=== PATIENT | male | born 1960 | race Caucasian/White ===

== ENCOUNTER → 2016-12-29 | Outpatient (CLI) | payer OTHER ==
[~2016-12-29] VITALS: Ht 177.8 cm; Wt 93.9 kg
[~2016-12-29] MED LIST: ADVAIR 250/501 DISK IH; AMLODIPINE-BEN1 EACH PO; ATHLETE'S FOOT130 GM TP; BISACODYL5 MG PO; CALMOSEPTINE O3.5 GM TP; CLARITIN,ALAVAR10 MG PO; CLOTRIMAZOLE-BE15 GM TP; COLACE100 MG PO; CONSTULOSE10 GM/15 M PO; DEBROX15 ML BOTH EARS; DITROPAN XL15 MG PO; EAR WAX DROPS15 ML BOTH EARS; ENULOSE10 GM/15 M PO; FLOMAX0.4 MG PO; FLONASE SENSIM9.9 ML BOTH NARES; FLUTICASONE PRO16 GM BOTH NARES; GAS RELIEF125 M1 PO; GAS RELIEF125 MG PO; GOLD BOND MEDI283 G1 TP; HEAD AND SHOULDERS TP; IMODIUM A-D2 M2 PO; IMODIUM MS REL1 EACH PO; JOCK ITCH RELIE15 GM TP; KENALOG,ARISTOC80 GM TP; LAMICTAL200 MG PO; LAMOTRIGINE100 MG PO; LISTERINE PO; LOTREL 10/21 CAPSULE PO; NEOSPORIN ANT70.8 GM TP; NEXIUM40 MG PO; NICODERM CQ1 EACH TD; NORCO 5/3251 TABLET PO; OXYBUTYNIN CHLO15 MG PO; PATANOL OP100 DROP/5 BOTH EYES; POLYETHYLENE G255 GM PO; POLYETHYLENE GL17 GM PO; POTASSIUM CHLO10 ME3 PO; PRAVACHOL20 MG PO; PRAVASTATIN SOD20 MG PO; RISAMINE OINTM113 GM TP; ROBITUSSIN DM118 ML PO; SERTRALINE HCL100 MG PO; SINGULAIR10 MG PO; TAMSULOSIN HCL0.4 MG PO; TIZANIDINE HCL2 MG PO; TRIAMCINOLONE A15 GM TP; TRIPLE ANTIBIO1 EACH TP; TYLENOL EXTRA500 MG PO; TYLENOL REGULA325 MG PO; UNABLEOBTAIN; VENTOLIN HFA18 GM IH; ZANAFLEX2 MG PO; ZOLOFT100 MG PO; ZOLPIDEM TARTRA10 MG PO; [UNRECOGNIZED DRUG - OTHER] TP
== END | disposition home or self-care (01) ==
LOC: AMB 09:07
DX: Z12.11 Encounter for screening for malignant neoplasm of colon (principal); D12.2 Benign neoplasm of ascending colon; D12.8 Benign neoplasm of rectum; K62.1 Rectal polyp; K64.8 Other hemorrhoids; R94.31 Abnormal electrocardiogram [ECG] [EKG]; K21.9 Gastro-esophageal reflux disease without esophagitis; I10 Essential (primary) hypertension; J44.9 Chronic obstructive pulmonary disease, unspecified; Z87.891 Personal history of nicotine dependence; Z79.899 Other long term (current) drug therapy
CPT/HCPCS: 88305; 93005; J2250

== ENCOUNTER 2018-02-03 11:06 | Emergency (ER) | payer OTHER ==
[~2018-02-03] VITALS: Ht 177.8 cm; Wt 93.5 kg
[2018-02-03 14:19] VITALS: BP 150/68
== END 2018-02-03 14:20 | disposition home or self-care (01) ==
LOC: EME 11:06
DX: S00.83XA Contusion of other part of head, initial encounter (principal); S50.311A Abrasion of right elbow, initial encounter; W18.30XA Fall on same level, unspecified, initial encounter; Y92.192 Bathroom in other specified residential institution as the place of occurrence of the external cause; J44.9 Chronic obstructive pulmonary disease, unspecified; E78.5 Hyperlipidemia, unspecified; K21.9 Gastro-esophageal reflux disease without esophagitis; N40.0 Benign prostatic hyperplasia without lower urinary tract symptoms; G81.94 Hemiplegia, unspecified affecting left nondominant side; R56.9 Unspecified convulsions; F32.9 Major depressive disorder, single episode, unspecified; Z87.891 Personal history of nicotine dependence; Z87.820 Personal history of traumatic brain injury; Z87.442 Personal history of urinary calculi; Z88.1 Allergy status to other antibiotic agents
CPT/HCPCS: 70450; 70486; 71045; 72125; 99281; 99285